=== PATIENT | male | born 1995 ===

== ENCOUNTER 2017-03-11 20:08 | Emergency (ER) | payer SELFPAY ==
[2017-03-11 20:19] VITALS: RESP 16; TEMP 98; O2SAT 100
--- NOTE | 2017-03-11 20:33 | ED PDOC ---
HPI: General Adult Time Seen by Provider: 03/11/17 20:21 Chief Complaint (Nursing): Alcohol Ingestion History Per: EMS History/Exam Limitations: intoxication Additional Complaint(s): Pt. brought in by EMS for public intoxication. Admits to drinking alcohol. Limited HPI due to intoxicated states. Past Medical History Reviewed: Historical Data, Nursing Documentation, Vital Signs Vital Signs: Last Vital Signs Temp 98.0 F 03/11/17 20:17 Pulse 132 H 03/11/17 20:17 Resp 16 03/11/17 20:17 BP 138/74 03/11/17 20:17 Pulse Ox 100 03/11/17 23:50 - Family History Family History: States: Unknown Family Hx - Immunization History Hx Tetanus Toxoid Vaccination: No Hx Influenza Vaccination: No Hx Pneumococcal Vaccination: No - Home Medications Home Medications: Ambulatory Orders Medication Instructions Recorded No Known Home Med 06/09/16 - Allergies Allergies/Adverse Reactions: Allergies Allergy/AdvReac Type Severity Reaction Status Date / Time No Known Allergies Allergy Verified 03/11/17 20:17 Review of Systems Review Of Systems: ROS cannot be obtained secondary to pt's inabilty to answer questions. Physical Exam - Reviewed Nursing Documentation Reviewed: Yes Vital Signs Reviewed: Yes - Physical Exam Appears: Positive for: Well, Non-toxic, No Acute Distress Head Exam: Positive for: ATRAUMATIC, NORMAL INSPECTION, NORMOCEPHALIC Skin: Positive for: Normal Color, Warm. Negative for: Rash Eye Exam: Positive for: EOMI, Normal appearance, PERRL ENT: Positive for: Normal ENT Inspection Neck: Positive for: Normal, Painless ROM Cardiovascular/Chest: Positive for: Regular Rate, Rhythm Respiratory: Positive for: CNT, Normal Breath Sounds Gastrointestinal/Abdominal: Positive for: Normal Exam, Bowel Sounds, Soft. Negative for: Tenderness Back: Positive for: Normal Inspection Extremity: Positive for: Normal ROM (passively) Neurologic/Psych: Positive for: Alert - ECG O2 Sat by Pulse Oximetry: 100 - Progress ED Course And Treament: Pt. placed on monitor. ETOH level drawn. FSBS ordered. 2229 Pt. seen walking to bathroom with steady gait by [place]. HR: SR @ 96 bpm on cardiac monitor technician. 0 On evaluation, pt. seen moving around on stretcher but once I went into room to attempt to talk to pt. he stopped moving. Pt. not answering questions but responds to sternal rub. Disposition - Clinical Impression Clinical Impression: Alcohol intoxication, Marijuana use - Patient ED Disposition Is Patient to be Admitted: No - Disposition Disposition: Routine/Home Disposition Time: 22:40 Condition: IMPROVED Instructions: Alcohol Intoxication (ED) Forms: [facility] (Georgian)
[2017-03-12 05:52] VITALS: BP 132/76; PULSE 96
== END 2017-03-12 05:53 | disposition home or self-care (01) ==
LOC: H.ER 20:08
DX: F10.129 Alcohol abuse with intoxication, unspecified (principal); F12.90 Cannabis use, unspecified, uncomplicated
CPT/HCPCS: 82948; 99282; G0480

== ENCOUNTER 2017-03-24 18:43 | Emergency (ER) | payer SELFPAY ==
[2017-03-24] MEDS ORDERED: Sodium Chloride 0.9% 1,000 ML IV STA ×2 (19:08→21:36)
[2017-03-24 19:46] LABS: BASO % 0.6 % (0.0-2.0); EOS # 0.2 K/uL (0.0-0.7); EOS % 2.8 % (0.0-4.0); HEMATOCRIT 40.7 % (35.0-51.0); MEAN CELL VOLUME 86.6 fl (80.0-94.0); MEAN CORPUSCULAR HEMOGLOBIN 30.1 pg (27.0-31.0); MEAN CORPUSCULAR HGB CONC 34.7 g/dL (33.0-37.0); MEAN PLATELET VOLUME 6.8 fl (7.2-11.7); MONO # 0.4 K/uL (0.0-0.8); MONO % 6.3 % (0.0-10.0); NEUT # 3.1 K/uL (1.8-7.0); NEUT % 55.3 % (50.0-75.0); RED CELL DISTRIBUTION WIDTH 12.8 % (11.5-14.5); WHITE BLOOD COUNT 5.7 K/uL (4.8-10.8)
--- NOTE | 2017-03-24 19:49 | ED PDOC ---
HPI: Chest Pain Time Seen by Provider: 03/24/17 19:01 Chief Complaint (Nursing): Chest Pain Chief Complaint (Provider): Chest pain - Drug use History Per: Patient History/Exam Limitations: no limitations Onset/Duration Of Symptoms: Mins Current Symptoms Are (Timing): Still Present Quality: Sharp Modifying Factors: None Additional Complaint(s): Pt reports left sided chest pain. Pt states he drank and did a lot of pills but does not know what medications. Denies SI/HI. Past Medical History Reviewed: Historical Data, Nursing Documentation, Vital Signs Vital Signs: Last Vital Signs Temp 98.3 F 03/24/17 18:55 Pulse 110 H 03/24/17 18:55 Resp 20 03/24/17 18:55 BP 153/80 H 03/24/17 18:55 Pulse Ox 97 03/24/17 18:55 - Medical History PMH: No Chronic Diseases - Surgical History Surgical History: No Surg Hx - Family History Family History: States: Unknown Family Hx - Living Arrangements Living Arrangements: With Family - Social History Current smoker - smoking cessation education provided: No Alcohol: Occasional Drugs: Other - Immunization History Hx Tetanus Toxoid Vaccination: No Hx Influenza Vaccination: No Hx Pneumococcal Vaccination: No - Home Medications Home Medications: Ambulatory Orders Medication Instructions Recorded No Known Home Med 06/09/16 - Allergies Allergies/Adverse Reactions: Allergies Allergy/AdvReac Type Severity Reaction Status Date / Time No Known Allergies Allergy Verified 03/11/17 20:17 Review of Systems ROS Statement: Except As Marked, All Systems Reviewed And Found Negative Constitutional: Negative for: Fever, Chills Cardiovascular: Positive for: Chest Pain, Palpitations Physical Exam - Reviewed Nursing Documentation Reviewed: Yes Vital Signs Reviewed: Yes - Physical Exam Appears: Positive for: Well, No Acute Distress, Uncomfortable (Diaphoresis ). Negative for: Non-toxic Head Exam: Positive for: ATRAUMATIC, NORMAL INSPECTION, NORMOCEPHALIC Skin: Positive for: Normal Color, Warm, DRY Eye Exam: Positive for: Normal appearance ENT: Positive for: Normal ENT Inspection Neck: Positive for: Normal, Painless ROM Cardiovascular/Chest: Positive for: Regular Rate, Rhythm Respiratory: Positive for: CNT, Normal Breath Sounds Gastrointestinal/Abdominal: Positive for: Normal Exam, Bowel Sounds, Soft. Negative for: Tenderness Back: Positive for: Normal Inspection Extremity: Positive for: Normal ROM Neurologic/Psych: Positive for: Alert, Oriented - ECG O2 Sat by Pulse Oximetry: 97 Medical Decision Making Medical Decision Making: Endorsed pending labs and re-evaluation. Disposition - Clinical Impression Clinical Impression: Chest pain - Patient ED Disposition Is Patient to be Admitted: Transfer of Care - Disposition Disposition: Transfer of Care Disposition Time: 20:03 Condition: GOOD
[2017-03-24 19:56] LABS: ALB/GLOB RATIO 1.5 (1.0-2.1); ALKALINE PHOSPHATASE 77 U/L (38-126); ALT/SGPT 70 U/L (21-72); AST/SGOT 76 U/L (17-59); BILIRUBIN,TOTAL 0.2 mg/dl (0.2-1.3); BLOOD UREA NITROGEN 9 mg/dl (9-20); CALCIUM 9.3 mg/dL (8.4-10.2); CARBON DIOXIDE 21 mmol/L (22-30); CHLORIDE 107 mmol/L (98-107); GFR AFRICAN-AMERICAN > 60; GLUCOSE,RANDOM 113 mg/dL (75-110); POTASSIUM 3.5 MMOL/L (3.6-5.0); SODIUM 145 mmol/l (132-148); TOTAL PROTEIN 7.2 G/DL (6.3-8.2)
--- NOTE | 2017-03-24 21:45 | ED PDOC ---
- Laboratory Results Result Diagrams: 03/24/17 19:41 03/24/17 19:41 - ECG O2 Sat by Pulse Oximetry: 97 Pulse Ox Interpretation: Normal - Radiology X-Ray: Viewed By Me X-Ray Interpretation: No Acute Disease - Progress ED Course And Treament: Case endorsed to mortgage or loan underwriter from [place] [facility] pending labs 21:30 Patient actively vomiting in trash can. Helena keating (certified solution design engineer) at bedside for translation, who states he took more than 10 pills of both Aleve , and baby aspirin between the hours of noon and 16:30. Patient states he did this because he was feeling "low". Patient denies suicidal, homicidal ideations. IV zofran ordered, IV fluids ordered, poison control consult ordered Poison control contacted by RN, recommends repeating ASA, salicylate levels, IV fluids Repeat levels negative, patient cleared as per poison control. 1:30 Patient awake, alert, oriented x3. Ambulating steady gait. Patient evaluated by tin recovery worker; does not meet criteria for admission at this time. Stable for discharge. Disposition - Clinical Impression Clinical Impression: Chest pain, Alcohol abuse - POA Present On Arrival: None - Disposition Referrals: [facility] [Outside] Disposition: Routine/Home Disposition Time: 02:03 Condition: IMPROVED Instructions: Abuse of Alcohol (ED), Chest Pain (ED) Print Language: HUNGARIAN
[2017-03-24 21:54] VITALS: RESP 17
[2017-03-25 02:19] VITALS: BP 135/71; PULSE 77; TEMP 98.2; O2SAT 98
--- NOTE | 2017-03-25 08:20 | CARD ---
APPROVED REPORT EKG Measurement Heart [id number] MD [id number] <Conclusion> Sinus tachycardia (?? is V1 and V2 switched??) Please repeat Abnormal ECG
--- NOTE | 2017-03-25 08:26 | RAD ---
HISTORY: chest pain COMPARISON: No prior. FINDINGS: LUNGS: No active pulmonary disease. PLEURA: No significant pleural effusion identified, no pneumothorax apparent. CARDIOVASCULAR: Normal. OSSEOUS STRUCTURES: No significant abnormalities. VISUALIZED UPPER ABDOMEN: Normal. OTHER FINDINGS: None. IMPRESSION: No active disease.
== END 2017-03-25 02:19 | disposition home or self-care (01) ==
LOC: H.ER 18:43
DX: R07.89 Other chest pain (principal); F10.10 Alcohol abuse, uncomplicated
CPT/HCPCS: 71010; 80053; 84484; 85025; 93005; 96374; 99284; G0480; J2405; J7040

== ENCOUNTER 2017-03-29 20:50 | Emergency (ER) | payer SELFPAY ==
[2017-03-29 20:55] VITALS: BP 186/96; PULSE 117; RESP 16; TEMP 97.6; O2SAT 100
--- NOTE | 2017-03-29 21:18 | ED PDOC ---
HPI: Male Pain Time Seen by Provider: 03/29/17 20:55 Chief Complaint (Nursing): Male Genitourinary Chief Complaint (Provider): Blood in urine, low back pain bilateral for 5 days History Per: Patient History/Exam Limitations: no limitations Onset/Duration Of Symptoms: Days Current Symptoms Are (Timing): Still Present Quality Of Discomfort: Dull Associated Symptoms: Urinary Symptoms (Blood in urine, no dysuria ). denies: Fever, Chills, Nausea, Vomiting, Loss Of Appetite, Back Pain Additional Complaint(s): PT states he did not tell provider when he was in ER 3 days ago. PT reports eating and drinking normally. Pt reports drinking alcohol today, steady gait on arrival. Past Medical History Reviewed: Historical Data, Nursing Documentation, Vital Signs Vital Signs: Last Vital Signs Temp 97.6 F 03/29/17 20:53 Pulse 117 H 03/29/17 20:53 Resp 16 03/29/17 20:53 BP 186/96 H 03/29/17 20:53 Pulse Ox 100 03/29/17 20:53 - Medical History PMH: No Chronic Diseases Denies: Diabetes, Hepatitis, HIV, HTN, Seizures, Sexually Transmitted Disease - Surgical History Surgical History: No Surg Hx - Family History Family History: States: Unknown Family Hx - Immunization History Hx Tetanus Toxoid Vaccination: No Hx Influenza Vaccination: No Hx Pneumococcal Vaccination: No - Home Medications Home Medications: Ambulatory Orders Medication Instructions Recorded No Known Home Med 06/09/16 - Allergies Allergies/Adverse Reactions: Allergies Allergy/AdvReac Type Severity Reaction Status Date / Time No Known Allergies Allergy Verified 03/11/17 20:17 Review of Systems ROS Statement: Except As Marked, All Systems Reviewed And Found Negative Constitutional: Negative for: Fever, Chills Gastrointestinal: Negative for: Abdominal Pain Genitourinary Male: Positive for: Hematuria. Negative for: Dysuria, Frequency Physical Exam - Reviewed Nursing Documentation Reviewed: Yes Vital Signs Reviewed: Yes - Physical Exam Appears: Positive for: Well, Non-toxic, No Acute Distress Head Exam: Positive for: ATRAUMATIC, NORMAL INSPECTION, NORMOCEPHALIC Skin: Positive for: Normal Color, Warm, DRY Eye Exam: Positive for: Normal appearance ENT: Positive for: Normal ENT Inspection Neck: Positive for: Normal, Painless ROM Cardiovascular/Chest: Positive for: Regular Rate, Rhythm Respiratory: Positive for: Normal Breath Sounds. Negative for: Accessory Muscle Use Gastrointestinal/Abdominal: Positive for: Normal Exam, Bowel Sounds, Soft. Negative for: Tenderness Back: Positive for: Normal Inspection. Negative for: L CVA Tenderness, R CVA Tenderness Extremity: Positive for: Normal ROM. Negative for: Tenderness Neurologic/Psych: Positive for: Alert, Oriented - ECG O2 Sat by Pulse Oximetry: 100 Medical Decision Making Medical Decision Making: Pt denies sexual activity. Urine dip normal. Culture sent to lab. Disposition - Clinical Impression Clinical Impression: Normal exam - Patient ED Disposition Is Patient to be Admitted: No Counseled Patient/Family Regarding: Diagnosis, Need For Followup - Disposition Disposition: Routine/Home Disposition Time: 21:46 Condition: GOOD Instructions: Acute Hematuria (ED) Forms: [facility] (Yoruba) Print Language: UKRAINIAN
== END 2017-03-29 22:05 | disposition home or self-care (01) ==
LOC: H.ER 20:50
DX: R31.9 Hematuria, unspecified (principal)

== ENCOUNTER 2017-04-09 19:21 | Emergency (ER) | payer SELFPAY ==
[2017-04-09 19:40] VITALS: BP 147/78; PULSE 112; RESP 18; TEMP 97.2; O2SAT 98
--- NOTE | 2017-04-09 20:30 | ED PDOC ---
HPI: Psych/Substance Abuse Time Seen by Provider: 04/09/17 19:46 Chief Complaint (Nursing): Psychiatric Evaluation Chief Complaint (Provider): Psychiatric Evaluation ED Caveat: Intoxicated History/Exam Limitations: intoxication Onset/Duration Of Symptoms: Mins (prior to arrival) Current Symptoms Are (Timing): Still Present Additional Complaint(s): 21 year old male who presents to the emergency department for an evaluation of hearing voices prior to arrival. Patient admitted to drinking alcohol tonight and stated he saw a woman in the river telling him to come in. History is limited due to patient's current state of intoxication. Denied any suicidal or homicidal ideation. PMD: none provided Past Medical History Reviewed: Historical Data, Nursing Documentation, Vital Signs Vital Signs: Last Vital Signs Temp 97.2 F L 04/09/17 19:36 Pulse 112 H 04/09/17 19:36 Resp 18 04/09/17 19:36 BP 147/78 04/09/17 19:36 Pulse Ox 98 04/09/17 19:36 - Medical History PMH: No Chronic Diseases Denies: Diabetes, Hepatitis, HIV, HTN, Seizures, Sexually Transmitted Disease - Family History Family History: States: Unknown Family Hx - Immunization History Hx Tetanus Toxoid Vaccination: No Hx Influenza Vaccination: No Hx Pneumococcal Vaccination: No - Home Medications Home Medications: Ambulatory Orders Medication Instructions Recorded No Known Home Med 06/09/16 - Allergies Allergies/Adverse Reactions: Allergies Allergy/AdvReac Type Severity Reaction Status Date / Time No Known Allergies Allergy Verified 03/11/17 20:17 Review of Systems Review Of Systems: ROS cannot be obtained secondary to pt's inabilty to answer questions. (intoxicated) Psych: Negative for: Suicidal ideation (or homicidal ideation) Physical Exam - Reviewed Nursing Documentation Reviewed: Yes Vital Signs Reviewed: Yes - Physical Exam Appears: Positive for: Non-toxic, No Acute Distress Head Exam: Positive for: ATRAUMATIC, NORMAL INSPECTION, NORMOCEPHALIC Skin: Positive for: Normal Color Eye Exam: Positive for: Normal appearance ENT: Positive for: Normal ENT Inspection Neck: Positive for: Normal, Painless ROM, Supple. Negative for: Decreased ROM Cardiovascular/Chest: Positive for: Regular Rate, Rhythm, Chest Non Tender Respiratory: Positive for: Normal Breath Sounds, Decreased Breath Sounds. Negative for: Wheezing, Respiratory Distress Gastrointestinal/Abdominal: Positive for: Normal Exam, Soft. Negative for: Tenderness Extremity: Positive for: Normal ROM (upper/lower). Negative for: Pedal Edema ( bilateral), Deformity (bilateral) Neurologic/Psych: Positive for: Mood/Affect (intoxicated), Gait (unsteady), Other (slurred speech). Negative for: Alert, Oriented - Laboratory Results Result Diagrams: 04/09/17 20:12 04/09/17 20:12 - ECG O2 Sat by Pulse Oximetry: 98 (RA) Pulse Ox Interpretation: Normal Medical Decision Making Medical Decision Making: Initial Impression: ETOH abuse vs. psychiatric evaluation Initial Plan: * Acetaminophen * Alcohol serum * BMP * Drug screen, urine * Salicylate * CBC * Urinalysis * Crisis evaluation ____ Time: 2127 --Upon crisis evaluation, patient is medically stable and requires no further treatment in the ED at this time. Patient will be discharged home. Counseling was provided and all questions were answered regarding diagnosis. There is agreement to discharge plan. Return if symptoms persist or worsen. Dr. Grady give diagnosis of Alcohol use disorder. Clinical Impression: Alcohol abuse Scribe Attestation: Documented by Becki Lua, acting as a scribe for Javier Marte MD. Provider Scribe Attestation: All medical record entries made by the Scribe were at my direction and personally dictated by me. I have reviewed the chart and agree that the record accurately reflects my personal performance of the history, physical exam, medical decision making, and the department course for this patient. I have also personally directed, reviewed, and agree with the discharge instructions and disposition. Disposition - Clinical Impression Clinical Impression: Alcohol abuse - Patient ED Disposition Is Patient to be Admitted: No Counseled Patient/Family Regarding: Studies Performed, Diagnosis - Disposition Referrals: [facility] [Outside] Disposition: Routine/Home Disposition Time: 21:28 Condition: STABLE Instructions: Abuse of Alcohol (ED), Suicide Prevention for Adults (ED) Forms: [employer] [facility] (Tamazight) Print Language: IRISH
[2017-04-09 20:35] LABS: BASO # 0.1 K/uL (0.0-0.2); BASO % 1.4 % (0.0-2.0); EOS # 0.2 K/uL (0.0-0.7); EOS % 3.5 % (0.0-4.0); HEMOGLOBIN 13.7 g/dL (12.0-18.0); LYMPH # 1.5 K/uL (1.0-4.3); LYMPH % 32.8 % (20.0-40.0); MEAN CORPUSCULAR HEMOGLOBIN 29.2 pg (27.0-31.0); MEAN CORPUSCULAR HGB CONC 33.5 g/dL (33.0-37.0); MEAN PLATELET VOLUME 7.1 fl (7.2-11.7); MONO # 0.9 K/uL (0.0-0.8); MONO % 18.9 % (0.0-10.0); NEUT % 43.4 % (50.0-75.0); NRBC % 0.2 % (0.0-0.0); RBC 4.69 Mil/uL (4.40-5.90); RED CELL DISTRIBUTION WIDTH 13.2 % (11.5-14.5); WHITE BLOOD COUNT 4.6 K/uL (4.8-10.8)
[2017-04-09 20:53] LABS: ACETAMINOPHEN < 10.0 ug/ml (10.0-30.0); BLOOD UREA NITROGEN 6 mg/dl (9-20); CALCIUM 8.9 mg/dL (8.4-10.2); GFR AFRICAN-AMERICAN > 60; GFR NON-AFRICAN AMERICAN > 60; SALICYLATE < 1.0 mg/dl
== END 2017-04-09 22:35 | disposition home or self-care (01) ==
LOC: H.ER 19:21
DX: F10.10 Alcohol abuse, uncomplicated (principal); R44.3 Hallucinations, unspecified
CPT/HCPCS: 80048; 85025; 99282; G0480